=== PATIENT | female | born 1990 | race Caucasian/White ===

== ENCOUNTER → 2022-07-11 | Outpatient (CLI) | payer BC ==
[~2022-07-11] MED LIST: GADOBUTROL 15 MMOL/15 ML (GADAVIST) VIAL IV ONE
--- NOTE | 2022-07-11 18:13 | Diagnostic Imaging Report ---
EXAMINATION: MRI BREAST BILAT W W/O CON INDICATION: Recently diagnosed left breast cancer. Evaluate extent of disease. TECHNIQUE: Utilizing a 1.5 Bertha magnet, the patient was placed in the prone position with a dedicated breast coil in place. Axial STIR, T2 fat sat, T1 and T1 fat-sat images are obtained without contrast. Postcontrast high-resolution dynamic images are also obtained. Pre and post contrasted images are then evaluated with [place] for evaluation of possible angiogenesis. 6 mL of Gadavist gadolinium contrast material was administered intravenously. COMPARISON: Targeted left breast ultrasound and images obtained during ultrasound-guided left breast biopsy performed on 06/07/2022. Comparison is also made to mammogram performed on 06/12/2022. FINDINGS: RIGHT BREAST: The breast is composed of extreme fibroglandular tissue. There is moderate background parenchymal enhancement, with scattered foci of enhancement also related to background. There is no suspicious mass or non-mass enhancement. There is no axillary or internal mammary adenopathy. LEFT BREAST: The breast is composed of extreme fibroglandular tissue. There is moderate background parenchymal enhancement, with scattered foci of enhancement also related to background. There is an enhancing circumscribed, bilobed mass in the upper inner breast at 11 o'clock far posterior depth 7 cm posterior to the nipple. This measures approximately 1.8 x 1.8 x 1.3 cm and demonstrates predominantly washout-type enhancement on kinetic analysis. Small focus of susceptibility artifact noted along the posterior inferior aspect of the mass represents the previously placed biopsy marker clip. Superior and posterior to this in the 11 o'clock breast immediately adjacent to the chest wall approximately 11 cm posterior to the nipple, there is a 0.7 x 1.2 cm T2 hyperintense, T1 hypointense oval mass that demonstrates subtle heterogeneous enhancement, with some areas of internal washout. On review of prior mammographic imaging, there is felt to be a correlate for this finding on the lateral and MLO views overlying the axilla, however, in the medial breast. There is no axillary or internal mammary adenopathy. IMPRESSION: Irregular enhancing mass in the 11 o'clock posterior left breast represents known malignancy. A separate enhancing mass is demonstrated in the left breast superior and slightly posterior to the known malignancy, also along the 11 o'clock axis immediately adjacent to the chest wall. This mass is indeterminate, however, must be viewed with suspicion given recently diagnosed malignancy. 2nd look ultrasound and biopsy is recommended to exclude multifocal disease. No MR evidence of malignancy in the right breast and no lymphadenopathy. BI-RADS Category 4: Suspicious RECOMMENDATIONS: 2nd look ultrasound and biopsy of mass in the upper inner left breast along the 11 o'clock axis posterior and superior to known malignancy. Dictated by: Dictated on workstation # [id number]
== END ==
LOC: RAD 09:30
DX: C50.212 Malignant neoplasm of upper-inner quadrant of left female breast (principal)
CPT/HCPCS: 77049